=== PATIENT | male | born 1940 | race Caucasian/White ===

== ENCOUNTER 2017-12-14 14:34 | Outpatient (CLI) | payer MEDICARE, BC | END 2017-12-14 14:35 | disposition home or self-care (01) | LOC: BICRAD 14:34 | PROVIDERS: ATTEND Family Medicine | DX: M25.511 Pain in right shoulder (principal); M19.011 Primary osteoarthritis, right shoulder ==

== ENCOUNTER 2019-05-14 11:17 | Day surgery (SDC) | payer MEDICARE, BC ==
[2019-05-13 10:30] VITALS: BMI 28.3
--- NOTE | 2019-05-14 14:26 | OP ---
DATE OF PROCEDURE: 05/14/2019 PRIMARY CARE PHYSICIAN: Sangeeta Mcgovern MD QUALITY COMPLIANCE CONSULTANT SURGEON: None. PROCEDURE PERFORMED: Esophagogastroduodenoscopy, surveillance. INDICATION: History of large tubulovillous adenoma of the duodenum, status post surgical resection at [facility] back in 2014, here for surveillance EGD. MEDICATIONS: See Anesthesia record. FINDINGS: After discussion of the risks, benefits, and alternatives of the procedure, informed consent was obtained and witnessed. Pre-endoscopic cardiopulmonary examination was satisfactory. Time-out was performed before sedation was achieved. Sedation was achieved with Anesthesia assistance in the endoscopy unit. A Pentax adult forward viewing upper endoscope was placed into the oropharynx and passed through the cricopharyngeus under direct visualization. The esophageal mucosa appeared normal throughout with a normal-appearing Z-line. The endoscope was advanced into the stomach. Forward and retroflexed views of the entire gastric mucosa were obtained. The gastric mucosa appeared normal throughout. The endoscope was advanced through the pylorus and into the first and second portions of the duodenum. There is some anatomic distortion, which appears to be postoperative in nature. I do not see any anastomotic line. The duodenal bulb is somewhat dilated. There is no stricture evident. No mucosal abnormalities. I was able to examine the first and second portions of the duodenum with the forward viewing scope. At this point, the scope was completely withdrawn. I then used a side-viewing duodenoscope, passed it down beyond the esophagus and stomach and into the first and second portions of the duodenum. Careful views of the first and second portions of the duodenum demonstrated normal mucosa throughout. There was no evidence of any recurrent residual polyp in the area. At this point, the duodenoscope was completely withdrawn suctioning out excess air and fluid and the procedure was completed. The patient tolerated the procedure well. There were no immediate postprocedure complications. IMPRESSION: 1. Normal exam, with no evidence of residual or recurrent polyp in the first or second portion of the duodenum. 2. Otherwise normal esophagogastroduodenoscopy. RECOMMENDATION: 1. Repeat EGD for surveillance at a 5-year interval. 2. The patient will be due for surveillance colonoscopy in April 2020. 3. Follow up in the GI clinic as needed. Job ID: [id number]
== END 2019-05-14 14:30 | disposition home or self-care (01) ==
LOC: SDC 11:17
PROVIDERS: ATTEND Internal Medicine
PROC: 0DJ08ZZ Inspection of Upper Intestinal Tract, Via Natural or Artificial Opening Endoscopic (ICD-10-PCS; principal; 2019-05-14)
DX: Z08 Encounter for follow-up examination after completed treatment for malignant neoplasm (principal); Z87.19 Personal history of other diseases of the digestive system; Z79.899 Other long term (current) drug therapy

== ENCOUNTER 2021-09-29 09:40 | Outpatient (CLI) | payer MEDICARE, BC | END 2021-09-29 09:41 | disposition home or self-care (01) | LOC: MRI 09:40 | PROVIDERS: ATTEND Thoracic Surgery (Cardiothoracic Vascular Surgery) | DX: G31.84 Mild cognitive impairment of uncertain or unknown etiology (principal); F33.42 Major depressive disorder, recurrent, in full remission; F41.1 Generalized anxiety disorder; G47.00 Insomnia, unspecified; I67.89 Other cerebrovascular disease | CPT/HCPCS: 70553 ==

== ENCOUNTER 2021-10-21 14:41 | Outpatient (CLI) | payer MEDICARE, BC | END 2021-10-21 14:42 | disposition home or self-care (01) | LOC: BICRAD 14:41 | PROVIDERS: ATTEND Family Medicine | DX: M25.561 Pain in right knee (principal) ==

== ENCOUNTER 2022-12-15 10:24 | Outpatient (CLI) | payer MEDICARE, BC | END 2022-12-15 10:25 | disposition home or self-care (01) | LOC: BICRAD 10:24 | PROVIDERS: ATTEND Family Medicine | DX: M79.674 Pain in right toe(s) (principal); K31.7 Polyp of stomach and duodenum ==